=== PATIENT | female | born 1985 | race Caucasian/White ===

== ENCOUNTER 2016-12-12 23:48 | Emergency (ER) | payer OTHER ==
[~2016-12-12] VITALS: Ht 165.1 cm; Wt 102.0 kg
[2016-12-12 23:50] VITALS: BP 138/88; PULSE 98; RESP 14; TEMP 98.1; O2SAT 96
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
[2016-12-13] MEDS ORDERED: KETOROLAC TROMETHAMINE 60 MG/2 ML (IM) VIAL IM ONE (02:15)
== END 2016-12-13 02:26 | disposition home or self-care (01) ==
LOC: NEPB 23:48
DX: F07.81 Postconcussional syndrome (principal); V89.2XXS Person injured in unspecified motor-vehicle accident, traffic, sequela; Z72.0 Tobacco use
CPT/HCPCS: 70450

== ENCOUNTER 2017-07-14 07:54 | Emergency (ER) | payer OTHER ==
[~2017-07-14] VITALS: Ht 165.1 cm; Wt 99.0 kg
[2017-07-14 07:55] VITALS: BP 120/61; PULSE 102; RESP 20; TEMP 99.7; O2SAT 97
[2017-07-14] MEDS ORDERED: SODIUM CHLORIDE 0.9% FLUSH 10 ML FLUSH IVF PRN (08:45)
[2017-07-14 09:01] LABS: AUTOMATED NEUTROPHIL # 5.8 TH/MM3 (1.8-7.7); BASOPHIL % 0.3 % (0.0-2.0); EOSINOPHIL # 0.1 TH/MM3 (0-0.4); EOSINOPHIL % 0.6 % (0.0-4.0); HEMATOCRIT 35.7 % (35.0-46.0); HEMO FLAGS DIFF FINAL; LYMPH % 27.2 % (9.0-44.0); LYMPHOCYTE # 2.5 TH/MM3 (1.0-4.8); MEAN CELL VOLUME 79.9 FL (80.0-100.0); MEAN CORPUSCULAR HEMOGLOBIN 26.3 PG (27.0-34.0); MEAN CORPUSCULAR HGB CONC 32.9 % (32.0-36.0); MONO % 8.6 % (0.0-8.0); NEUT % 63.3 % (16.0-70.0); PLATELET COUNT 216 TH/MM3 (150-450); RED BLOOD COUNT 4.47 MIL/MM3 (4.00-5.30); RED CELL DISTRIBUTION WIDTH 14.6 % (11.6-17.2); WHITE BLOOD COUNT 9.2 TH/MM3 (4.0-11.0)
[2017-07-14 09:13] LABS: APTT (PATIENT) 32.1 SEC (24.3-30.1); PROTHROMBIN TIME - PATIENT 11.4 SEC (9.8-11.6)
[2017-07-14 09:20] VITALS: BP 100/64; PULSE 94; RESP 19; O2SAT 97
[2017-07-14 09:21] VITALS: O2SAT 97
[2017-07-14 09:30] LABS: ANION GAP 9 MEQ/L (5-15); BICARBONATE 22.6 MEQ/L (21.0-32.0); BLOOD UREA NITROGEN 9 MG/DL (7-18); CHLORIDE 105 MEQ/L (98-107); GLOMERULAR FILTRATION RATE 105 ML/MIN (>89); MAGNESIUM 2.1 MG/DL (1.5-2.5); POTASSIUM 3.9 MEQ/L (3.5-5.1); SODIUM (NA) 137 MEQ/L (136-145)
[2017-07-14] MEDS ORDERED: SODIUM CHLOR 0.9% 1000 ML INJ 1,000 ML IV ONE (09:30)
[2017-07-14] MEDS ORDERED: METOCLOPRAMIDE HCL 10 MG/2 ML VIAL IV PUSH ONE (09:30)
--- NOTE | 2017-07-14 09:30 | RADRPT ---
EXAM DATE/TIME: 07/14/2017 09:11 [facility] COMPARISON: No previous studies available for comparison. INDICATIONS : Chest pain. Patient c/o shortness of breath. MEDICAL HISTORY : None. SURGICAL HISTORY : Tubal ligation. ENCOUNTER: Initial ACUITY: 2 days PAIN SCORE: 0/10 LOCATION: Bilateral chest FINDINGS: A single view of the chest demonstrates the lungs to be symmetrically aerated without evidence of mas s, infiltrate or effusion. The cardiomediastinal contours are unremarkable. Osseous structures are intact. CONCLUSION: Normal examination. Faisal Mckeon MD on July 14, 2017 at 9:29 Board Certified Radiologist. This report was verified electronically.
[2017-07-14 09:39] LABS: CREATINE KINASE 67 U/L (26-192)
[2017-07-14 10:05] VITALS: BP 127/78; PULSE 102; RESP 22; O2SAT 100
[2017-07-14] MEDS ORDERED: diphenhydrAMINE HCL 50 MG/ML VIAL IV PUSH ONE (10:15)
--- NOTE | 2017-07-14 10:55 | PD ---
HPI Chief Complaint: Chest Pain Time Seen by Provider: 08:32 Travel History International Travel<30 days: No Contact w/Intl Traveler<30days: No Traveled to known affect area: No History of Present Illness HPI 32-year-old female came to the emergency room with history of headache, sore throat for past 2 days. Upon asking patient says that she has history of headache and gets it once or twice a month. She points her headache to the left parietal area and and says it moves to the right parietal area. The headache seems to get worse with light. She has come to the emergency room in the past for the headache. Seems like this time it is in addition the sore throat. She says it hurts when she tries to swallow. She felt a little feverish yesterday and she took some Advil last night. She did not take any medications this morning. Vital signs are stable here. Patient does not appear to be in any significant distress. She was on her cell phone when I went to see her initially in her room. [facility] Past Medical History Narrative Medical List of her past medical, surgical, social and family history was reviewed from the nursing note. Medical History: Denies Significant Hx Diminished Hearing: No Respiratory: Yes (CHILDHOOD ASTHMA) Tetanus Vaccination: Unknown Influenza Vaccination: No ?: Not LMP: LAST MONTH : 2 Para: 2 Miscarriage: 0 : 0 Tubal Ligation: Yes Past Surgical History Abdominal Surgery: Yes Section: Yes (TIMES 2) Gynecologic Surgery: Yes (TUBAL, X 2) Social History Alcohol Use: No (OCC) Tobacco Use: Yes (1 PACK EVERY 3-4 DAYS) Substance Use: Yes (MARIJUANA ) Allergies-Medications (Allergen,Severity, Reaction): Coded Allergies: metoclopramide (Verified Adverse Reaction, Mild, 07/14/17) PT STATES SHE BECAME VERY HOT AND SWEATY Comments List of her allergies reviewed from the nursing note. Reported Meds & Prescriptions Reported Meds & Active Scripts Active No Active Prescriptions or Reported Medications Narrative Medication List of her home medications reviewed from the nursing note. Review of Systems Except as stated in HPI: all other systems reviewed are Neg Physical Exam Narrative GENERAL: Awake, alert, obese, no obvious distress SKIN: Focused skin assessment warm/dry. HEAD: Atraumatic. Normocephalic. EYES: Pupils equal and round. No scleral icterus. No injection or drainage. ENT: No nasal bleeding or discharge. Mucous membranes pink and moist. Erythema of her pharynx without exudate. Tonsils are slightly enlarged. NECK: Trachea midline. No JVD. CARDIOVASCULAR: Regular rate and rhythm. No murmur appreciated. RESPIRATORY: No accessory muscle use. Clear to auscultation. Breath sounds equal bilaterally. GASTROINTESTINAL: Abdomen soft, non-tender, nondistended. Hepatic and splenic margins not palpable. MUSCULOSKELETAL: No obvious deformities. No clubbing. No cyanosis. No edema. NEUROLOGICAL: Awake and alert. No obvious cranial nerve deficits. Motor grossly within normal limits. Normal speech. PSYCHIATRIC: Appropriate mood and affect; insight and judgment normal. Data Data Last Documented VS Vital Signs Date Time Temp Pulse Resp B/P (MAP) Pulse Ox O2 Delivery O2 Flow Rate FiO2 07/14/17 11:51 88 17 120/62 (81) 98 07/14/17 10:05 Room Air 07/14/17 07:55 99.7 Orders Orders Electrocardiogram (07/14/17 08:36) Basic Metabolic Panel (Bmp) (07/14/17 08:36) Ckmb (Isoenzyme) Profile (07/14/17 08:36) Complete Blood Count With Diff (07/14/17 08:36) D-Dimer (07/14/17 08:36) Magnesium (Mg) (07/14/17 08:36) Prothrombin Time / Inr (Pt) (07/14/17 08:36) Act Partial Throm Time (Ptt) (07/14/17 08:36) Troponin I (07/14/17 08:36) Chest, Single Ap (07/14/17 08:36) Ecg Monitoring (07/14/17 08:36) Bilateral Bp Monitoring (07/14/17 08:36) Iv Access Insert/Monitor (07/14/17 08:36) Oximetry (07/14/17 08:36) Oxygen Administration (07/14/17 08:36) Sodium Chloride 0.9% Flush (Ns Flush) (07/14/17 08:45) Sodium Chlor 0.9% 1000 Ml Inj (Ns 1000 M (07/14/17 09:30) Metoclopramide Inj (Reglan Inj) (07/14/17 09:30) Group A Rapid Strep Screen (07/14/17 09:27) Strep Culture (Group A) (07/14/17 09:35) Diphenhydramine Inj (Benadryl Inj) (07/14/17 10:15) Labs Laboratory Tests Test 07/14/17 08:50 White Blood Count 9.2 TH/MM3 Red Blood Count 4.47 MIL/MM3 Hemoglobin 11.7 GM/DL Hematocrit 35.7 % Mean Corpuscular Volume 79.9 FL Mean Corpuscular Hemoglobin 26.3 PG Mean Corpuscular Hemoglobin Concent 32.9 % Red Cell Distribution Width 14.6 % Platelet Count 216 TH/MM3 Mean Platelet Volume 7.4 FL Neutrophils (%) (Auto) 63.3 % Lymphocytes (%) (Auto) 27.2 % Monocytes (%) (Auto) 8.6 % Eosinophils (%) (Auto) 0.6 % Basophils (%) (Auto) 0.3 % Neutrophils # (Auto) 5.8 TH/MM3 Lymphocytes # (Auto) 2.5 TH/MM3 Monocytes # (Auto) 0.8 TH/MM3 Eosinophils # (Auto) 0.1 TH/MM3 Basophils # (Auto) 0.0 TH/MM3 CBC Comment DIFF FINAL Differential Comment Prothrombin Time 11.4 SEC Prothromb Time International Ratio 1.0 RATIO Activated Partial Thromboplast Time 32.1 SEC D-Dimer Quantitative (PE/DVT) 0.28 MG/L FEU Blood Urea Nitrogen 9 MG/DL Creatinine 0.66 MG/DL Random Glucose 92 MG/DL Calcium Level 8.7 MG/DL Magnesium Level 2.1 MG/DL Sodium Level 137 MEQ/L Potassium Level 3.9 MEQ/L Chloride Level 105 MEQ/L Carbon Dioxide Level 22.6 MEQ/L Anion Gap 9 MEQ/L Estimat Glomerular Filtration Rate 105 ML/MIN Total Creatine Kinase 67 U/L Troponin I LESS THAN 0.02 NG/ML MDM Medical Decision Making Medical Screen Exam Complete: Yes Emergency Medical Condition: Yes Medical Record Reviewed: Yes Interpretation(s) Twelve-lead EKG was reviewed by me. Normal sinus rhythm, normal axis, nonspecific ST-T wave changes. Heart rate of 89 bpm. Differential Diagnosis Strep throat, viral illness, chronic headache Narrative Course 10:52 AM blood test results are back and within normal limit. Chest x-ray was within normal limit. Strep throat was negative. Patient is a smoker and she would be recommended to stop smoking. In my opinion patient has viral illness/ viral pharyngitis. As for her chronic headache I gave her IV Reglan and IV fluid bolus. The Reglan gave her akathisia and I have given her IV Benadryl which has calmed her down. She says her headache is gone at this point. I'm comfortable discharging her home. Procedures EKG Prior to Arrival: No Diagnosis Primary Impression: Migraine Qualified Codes: G43.001 - Migraine without aura, not intractable, with status migrainosus Additional Impression: Viral pharyngitis Referrals: Primary Care Physician 2 days Additional Instructions: Drink lots of fluid and coffee/caffeinated beverage. Do not drink wine, alcohol , smoke cigarettes or [id number] medications like sinus pills. These will make a headache worse. You can take Motrin or Tylenol for your sore throat. He should not be watching television, computer screen or Smart phone screen since these well worsening headache. Try to give your eyes and brain rest for the next 24-48 hours. Follow up with the primary care. Return to the ER if the condition worsens or any other new concerns. Med/Other Pt SpecificInfo: No Change to Meds Scripts No Active Prescriptions or Reported Meds Disposition: 01 DISCHARGE HOME Condition: Stable Chinedu Ibrahim MD Jul 14, 2017 10:55
[2017-07-14 11:51] VITALS: BP 120/62
--- NOTE | 2017-07-15 20:19 | EKG ---
Date Performed: 07/14/2017 Time Performed: 08:25:36 PTAGE: 32 years EKG: Sinus rhythm NORMAL ECG NO PREVIOUS TRACING DOCTOR: Crystal Kingsley Interpretating Date/Time 07/15/2017 20:19:14
== END 2017-07-14 11:57 | disposition home or self-care (01) ==
LOC: NEPE 07:54
DX: G43.001 Migraine without aura, not intractable, with status migrainosus (principal); J02.9 Acute pharyngitis, unspecified; R07.9 Chest pain, unspecified; F17.290 Nicotine dependence, other tobacco product, uncomplicated; F12.10 Cannabis abuse, uncomplicated
CPT/HCPCS: 71010; 80048; 82550; 83735; 84484; 85025; 85379; 85610; 85730; 87081; 87880; 93005; 96361; 96374; 96375; 99285; J1200; J2765; J7030